=== PATIENT | male | born 1990 | race Caucasian/White ===

== ENCOUNTER 2018-05-08 19:07 | Emergency (ER) | payer BC, OTHER ==
--- NOTE | 2018-05-08 19:33 | UC ---
UC General HPI - HPI Summary HPI Summary: SORE THROAT X 3 DAYS WITH ? FEVER AND EAR PRESSURE. - History of Current Complaint Chief Complaint: UCGeneralIllness Stated Complaint: THROAT COMPLAINT Time Seen by Provider: 05/08/18 19:21 Hx Obtained From: Patient Onset/Duration: Gradual Onset Timing: Constant Pain Intensity: 7 Aggravating: SWALLOWING Alleviating: NOTHING Associated Signs & Symptoms: Positive: Fever - Allergy/Home Medications Allergies/Adverse Reactions: Allergies Allergy/AdvReac Type Severity Reaction Status Date / Time Penicillins Allergy Hives Verified 05/08/18 19:22 Home Medications: Home Medications Echinacea 1 each PO DAILY 05/08/18 [History Confirmed 05/08/18] Ibuprofen 1,200 mg PO Q12HR 05/08/18 [History Confirmed 05/08/18] Multivit-Min/Iron Fum/Folic AC [Pdfev-Ozuibwk-Hqameclk Tablet] 1 each PO DAILY 05/08/18 [History Confirmed 05/08/18] PMH/Surg Hx/FS Hx/Imm Hx Previously Healthy: Yes - Surgical History Surgical History: Yes Surgery Procedure, Year, and Place: TOENAIL REMOVAL SURGERY - Family History Known Family History: Positive: Cardiac Disease, Diabetes - Social History Occupation: Employed Full-time Lives: With Family Alcohol Use: None Substance Use Type: None Smoking Status (MU): Never Smoked Tobacco - Immunization History Vaccination Up to Date: Yes Review of Systems Constitutional: Fever Skin: Negative Eyes: Negative ENT: Sore Throat Respiratory: Negative Cardiovascular: Negative Gastrointestinal: Negative Genitourinary: Negative Motor: Negative Neurovascular: Negative Musculoskeletal: Negative Neurological: Negative Psychological: Negative Is Patient Immunocompromised?: No All Other Systems Reviewed And Are Negative: Yes Physical Exam Triage Information Reviewed: Yes Appearance: Well-Appearing Vital Signs: Initial Vital Signs Temp 97.3 F 05/08/18 19:20 Pulse 119 05/08/18 19:20 Resp 22 05/08/18 19:20 BP 151/81 05/08/18 19:20 Pulse Ox 99 05/08/18 19:20 Vital Signs Reviewed: Yes Eyes: Positive: Conjunctiva Clear ENT: Positive: Pharyngeal erythema, TMs normal, Tonsillar swelling, Tonsillar exudate, Uvula midline, Other - foul odor to mouth. Negative: Nasal congestion , Nasal drainage, Trismus, Muffled voice, Hoarse voice Neck: Positive: Supple, Tenderness @ - peritonsilar nodes, Enlarged Nodes @ - peritonsilar Respiratory: Positive: Lungs clear, Normal breath sounds Cardiovascular: Positive: No Murmur, Brisk Capillary Refill, Tachycardia Abdomen Description: Positive: Nontender, No Organomegaly, Soft. Negative: Distended, Guarding Bowel Sounds: Positive: Present Musculoskeletal: Positive: ROM Intact Neurological: Positive: Alert Psychological: Positive: Age Appropriate Behavior Skin Exam: Normal Diagnostics - Laboratory Diagnostic Studies Completed/Ordered: rapid strep=neg. tc is pending. Re-Evaluation - Re-Evaluation First Eval Change: Improved - post tx plus pt drank 3 cups of water during his stay repeat HR 92. Course/Dx - Course Course Of Treatment: no concern for peritonsilar abscess. no uri or chest cold. exudative tonsilitis with malodor to breath. rapid strep is negative; however, I am going to tx for a presumtive bacterial infection based on hx and PE. - Differential Dx - Multi-Symptom Provider Diagnoses: Tonsillitis Discharge - Sign-Out/Discharge Documenting (check all that apply): Patient Departure - Discharge Plan Condition: Stable Disposition: HOME Prescriptions: Clindamycin Cap(NF) [Clindamycin Cap 300 mg Cap(NF)] 300 mg PO TID #30 cap Patient Education Materials: Tonsillitis (ED) Referrals: [facility]] - 1 Day [facility] Carlin [Medical Doctor] - 5 Days Additional Instructions: CALL [facility] IN AM, THEY WILL HELP YOU SET UP A FOLLOW UP APPOINTMENT. GO TO ER FOR ANY CHANGES OR WORSENING - Billing Disposition and Condition Condition: STABLE Disposition: Home
[2018-05-08] MEDS ORDERED: Ibuprofen ADULT LIQ* 600 MG/30 ML UDC PO ONE (19:41)
[2018-05-08 19:51] VITALS: BP 134/70
[2018-05-08] MEDS ORDERED: Lidocaine 2% VISCOUS* 15 ML UDC PO ONE (19:52)
[2018-05-08] MEDS ORDERED: Clindamycin CAP* 150 MG PO ONE (19:53)
== END 2018-05-08 20:35 | disposition home or self-care (01) ==
LOC: UCCORT 19:07
DX: J03.90 Acute tonsillitis, unspecified (principal); Z88.0 Allergy status to penicillin
CPT/HCPCS: 87070; 87651; 99203; A9270-GY; G0463